=== PATIENT | male | born 1995 | race Two or more races ===

== ENCOUNTER 2022-01-27 05:46 | Emergency (ER) | payer BC, OTHER ==
[~2022-01-27] VITALS: Ht 177.8 cm; Wt 81.6 kg
--- NOTE | 2022-01-27 06:05 | NUR ---
BIBS C/O PALPITATIONS X 2 MONTHS S/P "GETTING COVID VACCINATION". PATIENT ALERT AND ORIENTED X3. AMBULATORY WITH NON LABORED BREATHING. PATIENT IN BED 09 ON MONITOR AND POX.
--- NOTE | 2022-01-27 06:25 | NUR ---
BLOOD COLLECTED AND SENT TO LAB
[2022-01-27] MEDS ORDERED: METOPROLOL TARTRATE 25 MG TABLET PO ONE (06:30)
[2022-01-27] MEDS ORDERED: METOPROLOL TARTRATE 50 MG TABLET ONE (06:32)
[2022-01-27 06:38] LABS: BASOPHILS % (AUTO) 0.4 % (0.0-2.0); EOSINOPHILS % (AUTO) 2.1 % (0.0-6.0); HEMATOCRIT 43 % (39-51); HEMOGLOBIN 14.4 g/dL (13.5-17.5); LYMPHOCYTES # (AUTO) 1.9 K/uL (0.8-4.8); LYMPHOCYTES % (AUTO) 40.4 % (20.0-44.0); MEAN CORPUSCULAR HGB CONC 34 g/dl (31.0-36.0); MEAN CORPUSCULAR VOLUME 82 fL (80-96); MONOCYTES # (AUTO) 0.5 K/uL (0.1-1.30); MONOCYTES % (AUTO) 9.8 % (2.0-12.0); NEUTROPHILS # (AUTO) 2.2 K/uL (1.8-8.9); NEUTROPHILS % (AUTO) 47.3 % (43.0-81.0); PLATELET COUNT (AUTO) 201 K/uL (150-450); RED BLOOD CELL COUNT(AUTO) 5.18 MIL/uL (4.5-6.0); WHITE BLOOD COUNT (AUTO) 4.7 K/uL (4.3-11.0)
--- NOTE | 2022-01-27 06:55 | NUR ---
XRAY AT BEDSIDE
[2022-01-27 06:59] LABS: CALCIUM, SERUM 9.4 mg/dL (8.5-10.1); CREATININE 0.7 mg/dL (0.6-1.3); POTASSIUM 3.7 mmol/L (3.5-5.1)
[2022-01-27 07:04] LABS: ALBUMIN 3.6 g/dL (3.4-5.0); BILIRUBIN,DIRECT 0.1 mg/dL (0.0-0.2); BILIRUBIN,TOTAL 0.5 mg/dL (0.2-1.0); TOTAL PROTEIN, SERUM 6.8 g/dL (6.4-8.2)
--- NOTE | 2022-01-27 08:00 | NUR ---
THE PATIENT IS RECEIVED IN ER BED #9. THE PATIENT IS ALERT AND ORIENTED X4. IN ROOM AIR AND DENIES SOB. RESPIRATION REGULAR AND UNLABORED. WILL CONTINUE TO MONITOR THE PATIENT.
[2022-01-27] MEDS ORDERED: METO50TA16 PO (08:13)
--- NOTE | 2022-01-27 08:32 | NUR ---
IV removed. Catheter intact and site benign. Pressure and 4x4 applied to site. No bleeding noted.Patient discharged to home in stable condition. Written and verbal after care instructions given. Patient verbalizes understanding of instruction.
[2022-01-27 08:35] VITALS: BP 131/74
== END 2022-01-27 08:35 | disposition home or self-care (01) ==
LOC: ER 05:49
DX: E03.9 Hypothyroidism, unspecified (principal); R00.0 Tachycardia, unspecified; T50.B95A Adverse effect of other viral vaccines, initial encounter; Y92.89 Other specified places as the place of occurrence of the external cause
CPT/HCPCS: 36415; 71045-TC; 80048-TC; 80076-TC; 84443-TC; 85025-TC